=== PATIENT | female | born 1980 | race Caucasian/White ===

== ENCOUNTER → 2017-11-08 15:03 | Outpatient (CLI) | payer MEDICAID ==
[~2017-11-08 15:03] MED LIST: BUPRENORPHIN-N1 EACH SL; KLONOPIN1 MG PO; VYVANSE60 MG PO; WELLBUTRIN SR150 MG PO; ZOLOFT100 MG PO
[2017-11-21 08:13] VITALS: BMI 31.0
== END | disposition home or self-care (01) ==
LOC: D.LABREF 15:03
DX: R31.9 Hematuria, unspecified (principal)

== ENCOUNTER 2017-11-21 07:20 | Day surgery (SDC) | payer MEDICAID ==
[2017-11-20 15:12] LABS: HEMATOCRIT 39.1 % (36.0-48.0); HEMOGLOBIN 13.1 g/dL (12-16); MCH 30.1 pg (26.0-34.0); MCHC 33.5 g/dL (31.0-37.0); MCV 89.9 fL (80.0-100.0); MEAN PLATELET VOLUME 9.6 fL (7.4-10.4); RBC 4.35 10x6/uL (4.00-5.40); RDW 12.9 % (11.5-14.5); WBC 5.8 10x3/uL (4.8-10.8)
[~2017-11-21] VITALS: Ht 157.5 cm; Wt 76.7 kg
--- NOTE | ~2017-11-21 | OP ---
PATIENT NAME: DAWOOD HAM MEDICAL RECORD: [id number] :78 LOCATION:[facility] ADMISSION DATE: SURGEON: BRUNILDA BURTON MD DATE OF OPERATION: 11/21/2017 SURGEON: Brunilda Burton MD ANESTHESIA: MAC by Dr. Ed Guzman. PREOPERATIVE DIAGNOSES: Gross hematuria, interstitial cystitis. PROCEDURES: Cystoscopy, intravesical Rimso instillation 50 mL. FINDINGS: Single ureteral orifices bilaterally. No bladder tumors. Diffusely inflamed bladder. BLOOD LOSS: None. CLINICAL HISTORY: This is a 37-year-old female referred for gross hematuria. She had a workup including urine cytology, which was normal. CT scan of the abdomen and pelvis revealed no kidney stones and no renal masses. She comes today for cystoscopy. She does have ongoing symptoms of suprapubic pain, dyspareunia and urinary frequency. This is in spite of negative urine cultures. The symptoms are highly suggestive of interstitial cystitis. If we see bladder inflammation today, we will proceed to treat her with an anti-inflammatory, which is Rimso. This goes directly into the bladder. SHE IS ALLERGIC TO HYDROCODONE, CODEINE AND TRAMADOL. She was given Ancef manager of organizational development to the OR. DESCRIPTION OF PROCEDURE: The patient was given IV sedation. She was placed in the dorsal lithotomy position. We used a 21-Finnish cystoscope with 30-degree lens for visualization. There was some urethral stenosis, which we dilated with passage of the scope. In the bladder, no tumors were seen. Diffuse bladder inflammation was seen. The bladder was then emptied through the cystoscope sheath. We inserted a 16-Finnish red rubber catheter into the bladder. Through the catheter, 50 mL of Rimso-50 solution was placed into the bladder. The patient will hold the solution for a period of 15 minutes or greater and then void the solution out. She will come next week to the office to have the Rimso treatment given again by my office nurse. TRANSINT:[id number] Voice Confirmation ID: [id number] DOCUMENT ID: [id number] BRUNILDA BURTON MD at 1342 CC: [id number] DICTATION DATE: 11/21/17 1253 EYELET ROW MARKER: 11/21/17 1320 [facility] [address] [place] [address]
[2017-11-21 08:13] VITALS: BP 126/79; Ht 157.5 cm; Wt 76.7 kg
== END 2017-11-21 14:45 | disposition home or self-care (01) ==
LOC: D.OPS 07:20 → D.PAN 08:55 → D.OPS 09:00
PROVIDERS: Anesthesiology
DX: R31.0 Gross hematuria (principal); N30.11 Interstitial cystitis (chronic) with hematuria; Z01.812 Encounter for preprocedural laboratory examination

== ENCOUNTER 2018-09-11 16:00 | Outpatient (CLI) | payer MEDICAID ==
[2017-11-21 08:13] VITALS: BMI 31.0
== END 2018-09-11 16:30 | disposition home or self-care (01) ==
LOC: D.MAMMO 16:00
PROVIDERS: ATTEND Family Medicine
DX: Z12.31 Encounter for screening mammogram for malignant neoplasm of breast (principal)

== ENCOUNTER 2019-10-10 13:30 | Outpatient (CLI) | payer MEDICAID ==
[2017-11-21 08:13] VITALS: BMI 31.0
== END 2019-10-10 14:30 | disposition home or self-care (01) ==
LOC: D.MAMMO 13:30
PROVIDERS: ATTEND Family Medicine
DX: N64.4 Mastodynia (principal)

== ENCOUNTER 2020-06-11 05:00 | Inpatient (IN) | payer MEDICAID ==
[2020-06-08 16:21] LABS: UDS - AMPHET POSITIVE QUAL (NEGATIVE); UDS - BARB NEGATIVE QUAL (NEGATIVE); UDS - BENZO NEGATIVE QUAL (NEGATIVE); UDS - COCAINE NEGATIVE QUAL (NEGATIVE); UDS - OPIATE NEGATIVE QUAL (NEGATIVE); UDS - PCP NEGATIVE QUAL (NEGATIVE); UDS - THC POSITIVE QUAL (NEGATIVE)
[2020-06-08 16:41] LABS: BASOPHILS 0.4 % (0-2); EOSINOPHILS 0.6 % (0-7); HEMATOCRIT 42.6 % (36.0-48.0); HEMOGLOBIN 14.2 g/dL (12-16); IMMATURE GRANULOCYTES 0.3 % (0-5); LYMPHOCYTE ABS# 2.28 10x3/uL (1.18-3.74); LYMPHOCYTES 28.7 % (15-50); MCH 30.2 pg (26.0-34.0); MCHC 33.3 g/dL (31.0-37.0); MCV 90.6 fL (80.0-100.0); MEAN PLATELET VOLUME 10.4 fL (7.4-10.4); NEUTROPHIL ABS# 5.17 10x3/uL (1.56-6.13); PLATELET COUNT 374 10x3/uL (130-400); RDW 12.8 % (11.5-14.5)
[2020-06-08 16:43] LABS: CALC OSMOLALITY 269 mosm/kg (275-300); CALCIUM 9.3 mg/dL (8.5-10.1); CARBON DIOXIDE 28.3 mmol/L (21.0-32.0); CHLORIDE - SERUM 100 mmol/L (98-107); CREATININE - SERUM 0.7 mg/dL (0.6-1.3); GLUCOSE 89 mg/dL (74-106); POTASSIUM - SERUM 3.5 mmol/L (3.5-5.1); SODIUM 136 mmol/L (136-145); UREA NITROGEN 10 mg/dL (7-18); eGFR NON AFRICAN AMERICAN > 90 mL/min (90-120)
[2020-06-11] VITALS (10 sets, daily range): BP systolic 91–146; BP diastolic 57–88; Ht 167.6 cm; Wt 82.3 kg
[~2020-06-11] VITALS: Ht 167.6 cm; Wt 82.3 kg
[~2020-06-11 05:00] MED LIST changes: +AZO STANDARD95 MG PO; +DIFLUCAN150 MG PO; +MACRODANTIN100 MG; +MICONAZOLE NITR28 GM TOPICAL; +ZOLOFT50 MG PO
[2020-06-11 06:27] LABS: HCG URINE NEGATIVE (NEGATIVE)
--- NOTE | 2020-06-11 10:42 | NUR ---
PT REFUSES NARCOTICS AND ANESTHESIA AT BEDSIDE DISUCSSING PAIN CONTROL
--- NOTE | 2020-06-11 11:35 | NUR ---
RECEIVED PT VIA BED ACCOMPANIED BY PACU STAFF AND . TO ROOM 1276. PT AWAKE, BUT VERY DROWSY; RESPONDS TO NAME AND ANSWERS APPROPRIATELY. ORIENTED X3. IV INFUSING TO GRAVITY IN LEFT FOREARM. IV PLACED TO IVP INFUSING AT 125CC/HR. O2 AT 2L PER NC. 3 LAPROSCOPIC INSCISIONS NOTED: 1 @ UMBILICU AND 1 EACH AT RIGHT AND LEFT LOWER ABD. QUADRANTS. ALL LAP INCISIONS CDI WITH DERMABOND. LOW TRANSVERSE INCISION WITH STERISTRIPS AND DSG WITH SMALL AMOUNT SEROUS DRAINAGE NOTED ON DRESSSING. BRUNNER CATHETER DRAINING DARK GREEN/BLUE URINE TO GRAVITY; 25CC NOTED IN BAG ON ADMISSION TO UNIT. SCD'S IN PLACE; MACHINE ATTACHED AND CYLCINE. SECOND IV NOTED IN LEFT HAND-SALINE LOCKED. EPIDURAL INFUSING VIA PUMP. PT STATES SHE IS COMFORTABLE AND NOT REQUIRING ANY OTHER PAIN MEDICATION AT THIS TIME. WATER GIVEN. PT AND ORIENTED TO ROOM. BED IN LOW POSITION WITH SIDE RAILS UP X2. CALL LIGHT WITHIN REACH.
--- NOTE | 2020-06-11 12:22 | NUR ---
O2 SAT 100% ON 2L PER NC. OXYGEN D/C'D.
--- NOTE | 2020-06-11 13:00 | NUR ---
PT RESTING QUIETLY WITH EYES CLOSED. CALL LIGHT WITHIN REACH.
--- NOTE | 2020-06-11 15:04 | NUR ---
PT SILK WEAVER LIGHT. REQUESTS JELLO AND JUICE. JELLO AND JUICE GIVEN. PT. REMAINS COMFORTABLE WITH CONTINUEOUS INFUSION EPIDURAL. BRUNNER DRAINING DILUTE, CLEAR LIGHT BLUE URINE. NO OTHER NEEDS OR CONCERNS VOICED AT THIS TIME. AT BEDSIDE.
--- NOTE | 2020-06-11 16:00 | NUR ---
DR. ZIMMERMAN CALLED TO UNIT. STATUS REPORT GIVEN. ORDERS RECEIVED.
--- NOTE | 2020-06-11 16:27 | NUR ---
PT CALLS ON LIGHT. C/O PAIN TO RIGHT SIDE OF ABDOMEN. DENIES NAUSEA. TYLENOL 1000 MG IVP UP VIA ALARIS PUMP. TORADOL 30 MG GIVEN SIVP OVER 2 MINUTES. LEVAQUIN AND NEURONTIN BOTH GIVEN PO ORDERED. PT INSTRUCTED ON MEDS. VERBALIZES UNDERSTANDING. PT STATES PAIN SCALE "5-6" ON 0-10 PAIN SCALE.
--- NOTE | 2020-06-11 17:28 | NUR ---
IV SALINE LOCKED AND FLUSHED WITH 8CC NS WITHOUT DIFFICULTY.
--- NOTE | 2020-06-11 19:45 | NUR ---
ASSESSMENT PER FLOW SHEET, VS OBTAINED, SALINE LOCK IN LEFT HAND AND LEFT FA INTACT WITH NO REDNESS OR EDEMA, Melon #usemelonI INC WITH STERI STRIP AND CLEAR DRESSING INTACT WITH DRIED DRAINAGE NOTED, ICE PACK TO ABD, BRUNNER CATH INTACT DRAINING DARK YELLOW URINE, CHANGED PT'S GOWN, SCD'S ON AND WORKING PROPERLY, PT REQUESTED AND SERVED FRESH H20, PT DENIES FURTHER NEEDS, S/O ASLEEP AT BEDSIDE
--- NOTE | 2020-06-11 20:30 | NUR ---
EPIDURAL CHECK DONE, PT DENIES NEEDS
--- NOTE | 2020-06-11 22:05 | NUR ---
SALINE LOCK IN LEFT FA CONVERTED TO IV [facility] AT [facility], ADM TORADOL SIVP PER MD ORDERS, INFORMED PT THAT I WILL LEAVE THE IV INFUSING AT THIS TIME SINCE THE TYLENOL WILL BE DUE SHORTLY, PT VERBALIZES UNDERSTANDING, DENIES NEEDS AT THIS TIME, S/O ASLEEP AT BEDSIDE
--- NOTE | 2020-06-11 23:00 | NUR ---
PT AWAKE, VS OBTAINED, BRUNNER CATH EMPTIED, EPIDURAL CHECK DONE, TCDB, PT REPOSITIONED TO LEFT SIDE WITH PILLOW BEHIND BACK FOR COMFORT AND SUPPORT, FRESH ICE PACK TO ABD, ADM TYLENOL IVPB PER MD ORDRS, SEE EMAR, SCD'S CONTINUE ON AND WORKING PROPERLY, FRESH H20 SERVED, PT DENIES FURTHER NEEDS, S/O ASLEEP AT BEDSIDE
--- NOTE | 2020-06-11 23:21 | NUR ---
SUKHDEV SEGOVIA, RN SPOKE TO DR RAM REGARDING PT'S REQUEST FOR "SOMETHING FOR GAS", SHE REPORTS DR RAM ORDERED SIMETHICONE 80MG PO Q4H PRN FOR GAS
--- NOTE | 2020-06-12 | NUR ---
PT RESTING WITH EYES CLOSED, RESP QUIET, NO DISTRESS NOTED, LEFT UNDISTURBED AT THIS TIME, EPIDURAL CHECK DONE
--- NOTE | 2020-06-12 01:00 | NUR ---
PT RESTING WITH EYES CLOSED, RESP QUIET, NO DISTRESS NOTED, LEFT UNDISTURBED AT THIS TIME, EPIDURAL CHECK DONE, S/O ASLEEP AT BEDSIDE
--- NOTE | 2020-06-12 01:25 | NUR ---
PT UROLOGIC NURSE LIGHT, PT REPOSITIONED TO BACK, ICE PACK TO ABD, PT C/O PAIN, OFFERED PAIN MED, PT REFUSES AT THIS TIME, INFORMED PT THAT I WILL BE IN AT 2AM TO ADM NEURONTIN, PT VERBALIZES UNDERSTANDING, DENIES FURTHER NEEDS
--- NOTE | 2020-06-12 02:03 | NUR ---
PT AWAKE, ADM NEURONTIN PER MD ORDERS, SEE EMAR, REQUESTED AND SERVED FRESH H20, PT DENIES FURTHER NEEDS, S/O ASLEEP AT BEDSIDE
[2020-06-12 04:34] VITALS: BP 138/76
--- NOTE | 2020-06-12 04:35 | NUR ---
PT AROUSES TO OPENING OF DOOR, VS OBTAINED, BRUNNER CATH EMPTIED, PUMPS CLEARED, ADM TORADOL, TYLENOL, AND MYLICON PER MD ORDERS, SEE EMAR. TALKED TO PT ABOUT TAKING PAIN MED, PT VERBALIZES UNDERSTANDING, REPORTS THAT SHE WILL TALK TO DR ZIMMERMAN ABOUT IT, FRESH ICE PACK TO ABD, FRESH H20 SERVED, SCD'S CONTINUE ON AND WORKING PROPERLY, PT DENIES FURTHER NEEDS, S/O ASLEEP AT BEDSIDE
--- NOTE | 2020-06-12 05:30 | NUR ---
LAB IN ROOM, EPIDURAL CHECK DONE, PT DENIES NEEDS AT THIS TIME
[2020-06-12 06:08] LABS: HEMATOCRIT 34.7 % (36.0-48.0); HEMOGLOBIN 11.3 g/dL (12-16); MCH 29.8 pg (26.0-34.0); MCHC 32.6 g/dL (31.0-37.0); MCV 91.6 fL (80.0-100.0); RBC 3.79 10x6/uL (4.00-5.40); WBC 11.5 10x3/uL (4.8-10.8)
--- NOTE | 2020-06-12 06:36 | NUR ---
DR ZIMMERMAN ON UNIT, REPORTS HE SPOKE TO PT ABOUT PAIN MED, ORDERS RECEIVED FOR 0.5MG TO 1 MG Q4H IV FOR PAIN TO SEE HOW PT TOLERATES IT, ORDERS READ BACK AND VERIFIED
--- NOTE | 2020-06-12 06:53 | NUR ---
SHIFT REPORT TO DAY SHIFT
[2020-06-12 07:00] VITALS: BP 132/77
--- NOTE | 2020-06-12 07:00 | NUR ---
AM ASSESSMENT COMPLETED. SEE FLOWSHEET. SR UP X 2, CL/PHONE WITHIN REACH.
--- NOTE | 2020-06-12 07:35 | NUR ---
AFTER SPEAKING WITH PT REGARDING PAIN MANAGEMENT, PT STATES HER EPIDURAL HASN'T WORKED WELL FOR HER PAIN CONTROL, STATES THEY HAVEN'T BEEN GIVEN CLEAR ANSWERS TO HOW IT WORKS, AND WHEN TO STOP MED. MEDICATION ADM RECORD REVIEWED WITH PT, PT ABLE TO MOVE BOTH LEGS, RIGHT LEG WITHOUT WEAKNESS, WEAKNESS NOTED TO LEFT LEG. PT RATING PAIN TO INCISIONAL AREA 6/10, ABDOMEN PALPATES SOFT, LAP INCISIONS NOTED, ALONG WITH DRESSING TO INCISION, BRUISING (DARK PINK) AREA NOTED TO PT'S LEFT SIDE OF INCISION, APPROX 3 INCHES. PT DENIES PASSING GAS, BOWEL SOUNDS PRESENT X 4. LARGE ICE WATER SERVED TO PT, DIETARY SERVES CLEAR LIQUID TRAY. SR UP X2, CALL LIGHT AND PHONE WITHIN REACH.
--- NOTE | 2020-06-12 07:43 | NUR ---
PHONE CALL MADE TO DR. ZIMMERMAN. NO ANSWER.
--- NOTE | 2020-06-12 08:10 | NUR ---
PHONE CALL MADE TO DR. ZIMMERMAN BY Deborah MCLEOD, MITCHELL. VERIFICATION OF CONCURRENT EPIDURAL ORDER AND IV DILAUDID FOR PAIN MANAGEMENT QUESTIONED, TELEPHONE ORDER RECEIVED BY Deborah MCLEOD RN TO CALL ANESTHESIA FOR EPIDURAL MANAGEMENT, AND TO ADM IV DILAUDID NOW. PHONE CALL MADE TO DR. REDMOND, AND GUI CATALAN CRNA ANSWERS WITH REPORT GIVEN TO AUTOMOTIVE ELECTRICIAN.
--- NOTE | 2020-06-12 08:15 | NUR ---
GUI CATALAN, AUTOMOBILE SERVICE STATION ATTENDANT IN ROOM TO D/C EPIDURAL.
--- NOTE | 2020-06-12 11:10 | NUR ---
TELEPHONE CALL MADE TO DR. ZIMMERMAN TO REPORT WHEN PT GOT UP TO WALK TO THE BATHROOM TO TRY TO HAVE A BM, PT SAT DOWN ON THE TOILET, PT STATES "SOMETHING JUST CAME OUT", UPON INSPECTION OF PERINEAL/VAGINAL AREA, BRUNNER CATH NOTED TO BE ATTACHED TO LEG PLATE, AND OUT OF BLADDER, WITH BALLOON NOT INFLATED. BRUNNER CATH TAKEN OFF OF LEG PLATE, WITH 1100 CCS LIGHT YELLOW URINE IN BRUNNER BAG. TELEPHONE REPORT TO MD PT IS TOLERATING PO DIET, AND PO MEDS, REPORT TO MD IV TORADOL AND IV ZOFRAN, AND IV TORADOL STILL ORDERED. MD AWARE PT WAS GIVEN IV ZOFRAN AND IV TORADOL, WITH PO MEDS THAT WERE ADM. SEE EMAR FOR ALL MEDS ADM BY THIS RN. PERICARE DONE WITH WARM WATER BOTTLE, AND WARM WET WAHCLOTHS. BED LINENS CHANGED WITH HELP FROM Deborah THOMASON RN. PT THEN BACK TO BED. SRUP X2, CALL LIGHT AND PHONE WITHIN REACH. TELEPHONE ORDER RECEIVED FROM DR. ZIMMERMAN TO REPLACE BRUNNER CATH.
[2020-06-12 11:30] VITALS: BP 114/78
--- NOTE | 2020-06-12 12:25 | NUR ---
16 AZERI BRUNNER CATH INSERTED USING STERILE TECHNIQUE, WITH IMMEDIATE RETURN OF 100 MLS CLEAR YELLOW URINE. PT HENRY WELL. PT EDUCATED ON BRUNNER CATH CARE, AND LEG PLATE PLACEMENT, AND BRUNNER BAG PLACEMENT. PT DENIES ALL QUESTIONS AT THIS TIME. PT STATES THE PAIN MEDICATION HAS HELPED SOME NOW RATING PAIN 4/10. SRUP X2, CALL LIGHT AND PHONE WITHIN REACH.
[2020-06-12 16:00] VITALS: BP 124/68
--- NOTE | 2020-06-12 16:00 | NUR ---
TELEPHONE REPORT CALLED TO DR. ZIMMERMAN, PT REPORTS SHE FEELS LIKE SHE IS HAVING BLADDER SPASMS. TOTAL URINE OUTPUT REPORTED TO 1100 MLS AFTER BRUNNER CATH REPLACED EARLIER. TELEPHONE ORDER RECEIVED FOR URISPAS 100 MG PO Q6H.
--- NOTE | 2020-06-12 18:45 | NUR ---
PT SITTING UP IN THE BED, SIG OTHER AT BEDSIDE. SEE EMAR FOR ALL MEDS ADM BY THIS RN. PT DENIES ALL OTHER NEEDS. SRUP X2, CL/PHONE WITHIN REACH. PT DENIES N/V, SOB, CHEST PAIN, DIFFICULTY BREATHING.
--- NOTE | 2020-06-12 20:10 | NUR ---
RECEIVED REPORT FROM JAMEL PINEDA RN
[2020-06-12 20:45] VITALS: BP 106/71
--- NOTE | 2020-06-12 20:45 | NUR ---
ASSESSMENT PER FLOW SHEET, VS OBTAINED, SALINE LOCK IN LEFT HAND INTACT WITH NO REDNESS OR EDEMA, BIKINI INC WITH DRESSING INTACT,NO VAG BLEEDING NOTED, PT REPORTS FLATUS, BRUNNER CATH INTACT DRAINING PALE YELLOW URINE, PT RATES INC PAIN 08/03, SCD'S OFF AT THIS TIME, INFORMED PT THAT I WILL PUT THEM ON AT BEDTIME, PT VERBALIZES UNDERSTANDING, PT INST THAT SHE NEEDS TO AMB BEFORE BED, VERBALIZES UNDERSTANDING, FRESH H20 SERVED, S/O AT BEDSIDE
--- NOTE | 2020-06-12 21:05 | NUR ---
PT AMB IN ROWE WITH S/O AND THIS RN, GAIT STEADY, THEN BACK TO ROOM AND BED, PT HENRY WELL
--- NOTE | 2020-06-12 22:39 | NUR ---
PT AWAKE, ADM PAIN MED PER MD ORDERS, SEE EMAR, SCD'S PLACED ON AND WORKING PROPERLY, FRESH H20 SERVED, PT DENIES FURTHER NEEDS, S/O AT BEDSIDE
[2020-06-13 00:27] VITALS: BP 107/66
--- NOTE | 2020-06-13 00:27 | NUR ---
PT RESTING WITH EYES CLOSED, AROUSES TO SOFT VERBAL STIMULATION, VS OBTAINED, AND TORADOL PO PER MD ORDERS, SEE EMAR, PT DENIES NEEDS AT THIS TIME, S/O ASLEEP AT BEDSIDE
--- NOTE | 2020-06-13 02:10 | NUR ---
PT AWAKE, ADM NEURONTIN PER MD ORDERS, SEE EMAR, EMPTIED MYESHA, PT DENIES NEEDS AT THIS TIME, SCD'S CONTINUE ON AND WORKING PROPERLY, S/O ASLEEP AT BEDSIDE
--- NOTE | 2020-06-13 02:30 | NUR ---
REPORT TO JAMEL PINEDA RN AND WILEY HEAD RN
[2020-06-13 04:40] VITALS: BP 99/66
--- NOTE | 2020-06-13 04:40 | NUR ---
ROUNDS COMPLETED, VSS, AFEBRILE, RESP EVEN AND UNLABORED, REPORTS PAIN 5-6 ON NUMERIC PAIN SCALE, PERCOCET TABS X2 ADMINISTERED WITH SIPS WATER PER PT REQUEST, BRUNNER WITH 200 ML CLEAR YELLOW URINE TO GRAVITY DRAINAGE NOTED IN CHAMBER. HOB ELEVATED 30 DEGREES, CUP OF ICE WATER PROVIDED AND 2 CUPS SHERBERT PER PT REQUEST GIVEN. C/L IN EASY REACH, BED IN LOW POSIITON, BED BRAKES LOCKED. CONTINUE TO MONITOR.
--- NOTE | 2020-06-13 06:03 | NUR ---
ROUNDS COMPLETED, SCHEDULED TORADOL PO ADMINISTERED PER ORDERS WITH SIPS WATER. PT RELAYS PAIN ON MOVEMENT RATED AT 5 OUT OF 10 ON NUMERIC PAIN SCALE. DENIES OTHER NEEDS, EMPTIED 300 ML URINE FROM BRUNNER CHAMBER INTO BAG. WILL MONIOTOR.
--- NOTE | 2020-06-13 07:06 | NUR ---
REPORT GIVEN TO ONCOMING SHIFT STAFF.
[2020-06-13 07:50] VITALS: BP 125/80
--- NOTE | 2020-06-13 07:50 | NUR ---
SHIFT ASSESSMENT COMPLETED PER FLOWSHEET. VSS. TELFA DRSG REMOVED FROM LOWER TRANSVERSE ABD INCISION. INCISION CLEAN AND DRY, STERI STRIPS INTACT, NO DRAINAGE NOTED, WELL APPROXIMATED. C/O ABD AND INCISIONAL PAIN. PAIN MANAGEMENT DISCUSSED AND WILL PROVIDE MEDS WHEN TIME. ICE PACK PROVIDED. INSTRUCTED ON BRUNNER CARE AND CHANGING BEDSIDE DRAINAGE BAG TO LEG BAG WITH RETURN DEMONSTRATION FROM PT SEEN. ICE WATER PROVIDED. SCD'S REMOVED PER REQUEST TO AMBULATE IN ROWE. SPOUSE PRESENT AND SUPPORTIVE OF PT. PT AMBULATORY IN ROWE WITH SPOUSE. STEADY GAIT NOTED.
--- NOTE | 2020-06-13 08:07 | NUR ---
MEDICATED PER EMAR. CONTINUES TO BE AMBULATORY IN ROWE AND ROOM WITH SPOUSE. FALL PRECAUTIONS GIVEN, VERBALIZES UNDERSTANING. STEADY GAIT NOTED.
--- NOTE | 2020-06-13 08:47 | NUR ---
BACK TO ROOM. PT DEMONSTRATES TO RN EMPTING LEG BAG. DENIES NEEDS. SPOUSE SUPPORTIVE AND ATTENTIVE TO PT. PT DENIES QUESTIONS REGARDING BRUNNER CARE. INSTRUCTED ON INCISIONAL CARE, VERBALIZES UNDERSTANDING.
--- NOTE | 2020-06-13 08:59 | OP ---
PATIENT NAME: DAWOOD HAM MEDICAL RECORD: [id number] :78 LOCATION:[id number] ADMISSION DATE:06/11/20 SURGEON: JESUS ZIMMERMAN MD DATE OF OPERATION: 06/11/2020 PREOPERATIVE DIAGNOSES: 1. Dyspareunia. 2. Dysfunctional uterine bleeding. POSTOPERATIVE DIAGNOSES: 1. Dyspareunia. 2. Dysfunctional uterine bleeding. 3. Pelvic adhesions. PROCEDURES: 1. Diagnostic laparoscopy. 2. Laparoscopic lysis of adhesions. 3. Total abdominal hysterectomy with bilateral salpingectomy. 4. Repair of cystotomy. 5. Cystoscopy. SURGEON: Jesus Zimmerman MD TAX PROCESSOR: Kirit Nance DO MARKETING DATABASE CONSULTANT: Jennifer Woods. ANESTHESIOLOGIST: Dr. Sethi. ANESTHETIC: General with TAP block year. FINDINGS: Omentum is densely adhered to the midline from just below the umbilicus to above the level of the uterine body. The bladder is adhesed to the cervix. Both tubes were interrupted bilaterally and the ovaries were unremarkable. Uterus is normal size, shape, and contour. At the time of cystoscopy, the mucosa is intact with repair evident. Both ureters showed good efflux of urine. SPECIMEN REMOVED: Uterus with cervix and bilateral tubes. SPECIMEN DISPOSITION: All specimens to Pathology. ESTIMATED BLOOD LOSS: Less than or equal to 150 cc. FLUIDS: 1600 cc of lactated Ringer's. URINE OUTPUT: 125 cc of clear urine. COMPLICATIONS: Cystotomy. DRAINS: Higgins to gravity. INDICATIONS: The patient is a 40-year-old female with heavy irregular periods along with dyspareunia. The patient has been offered conservative therapy and desires definitive treatment. The patient is consented for total laparoscopic OPERATIVE REPORT [id number] DAWOOD HAM hysterectomy and bilateral salpingectomy and any indicated procedure. DESCRIPTION OF PROCEDURE: After informed consent was assured, the patient was taken to the operating room where anesthetic was obtained. The [facility] and prepped and draped. A uterine manipulator was placed. An incision was made to accommodate a 5-mm trocar at the infraumbilical site. Accessory trocars were placed and the patient is in Trendelenburg position. Using a Thunderbeat coagulation cutter and starting on the right side, the mesosalpinx was compressed, coagulated, and . The dissection was carried out underneath the right tube across the uteroovarian ligament and round ligament. The anterior leaf of the broad ligament was opened and the posterior leaf dissected through the uterine vasculature. The vasculature of the right side was compressed, coagulated, and . A Surgicel was placed over this vascular stump while dissection begins on the left side. Left tube was compressed, coagulated, and along with the round ligament. The uteroovarian ligament on the left side was entered as well. Dissection carried down anteriorly and the bladder flap was now developed from the left to the right, taking down the scar tissue. During the course of dissection of the bladder, a incidental cystotomy was suspected and the bladder was retrograde filled with sterile milk, which demonstrates a defect. An open procedure was now performed. Using a #10 blade scalpel, the incision was made over the old Pfannenstiel scar and carried down to the underlying layer of the fascia, which was opened in the midline and extended laterally. Rectus bellies were dissected free superiorly and inferiorly and . Bowel was packed free of the pelvis and an O'Dmitriy-O'Quiroga self-retaining retractor was now placed. Upper and lower blades were placed with visualization of the uterus and the operative field. With 2 Garth clamps across the cornual region, the uterus was elevated and using a Garth-Shelli and Shelli clamps, the remaining portions of the cardinal ligaments were serially clamped, cut and tied until the level of the uterosacral ligaments were reached. The top of the vagina was cross-clamped with Garth clamps and the uterus and cervix were removed with Curtis scissors. Cuff was now closed with interrupted [id number] stitches. After closure of the cuff, pelvis was irrigated and irrigant removed. Adequate hemostasis was shown. Remaining portion of the left tube to include the fimbria was now removed with a Garth clamp and a [id number] stitch. The attention was directed to the bladder where the defect was identified and marked with chromic stitch. Using 3-0 chromic, the initial running stitch reapproximates the bladder mucosa. After this has been completed, 3-0 Vicryl was used to imbricate the muscularis and serosa over this repair. After the repair has been made, the bladder was retrograde filled with over 200 cc of sterile milk without extravasation of the distention media into the pelvis. The bladder was now drained and the pelvis again irrigated. After irrigation was complete, Varghese was placed over the operative field. Surgicel has been removed along with all sponges and our initial count was correct. Using a PDS suture, the fascial incision was now closed. After the fascia has been closed, the subcutaneous tissue was irrigated, bleeding vessels cauterized, and all skin sites were closed with 3-0 Monocryl on a PS2 needle. Sterile dressing was applied. Cystoscopy was performed. Good efflux of urine was noted from both right and left ureters. The repair site was identified with only a single stranded of chromic visualized. Sponge, lap and needle counts were correct times 2 at the close of this procedure. Higgins was restarted. The patient was awakened and went to the recovery area in stable condition. TRANSINT:[id number] Voice Confirmation ID: [id number] DOCUMENT ID: [id number] OPERATIVE REPORT [id number] DAWOOD HAM,JESUS Call MD at 0859 CC: [id number] DICTATION DATE: 06/11/20 1032 RETAIL DEPARTMENT SUPERVISOR: 06/11/20 1127 ADM IN [facility] [address] [place] [address]
[2020-06-13] MEDS ORDERED: NEURONTIN 300300 MG PO (09:11)
[2020-06-13] MEDS ORDERED: MOBIC7.5 MG PO (09:13)
[2020-06-13] MEDS ORDERED: PERCOCET 7.5/321 TAB PO (09:17)
--- NOTE | 2020-06-13 09:43 | NUR ---
L HAND PIV D/C'D WITH TIP INTACT. BANDAID PLACED. MEDICATED PER EMAR. VERBAL AND WRITTEN D/C INSTRUCTIONS PROVIDED. VERBALIZES UNDERSTANDING. ABD BINDER PROVIDED AND PLACED ON, INSTRUCTED ON USE, VERBALIZES UNDERSTANDING. COPIES OF POST OP AND POST OP HYST INSTRUCTION HANDOUTS PROVIDED. PRESCRIPTIONS FOR MOBIC, GABAPENTIN, AND PERCOCET PROVIDED. PT VERBALIZES RESUMING SUBOXONE FOLLOWING COMPLETION OF PERCOCET AND UNDERSTANDS IMPORTANCE OF CALLING [facility] TO SCHEDULE FOLLOW UP APPT IN CLINIC FOR MONDAY AND . STATES THAT SHE WILL CALL SPOUSE WHO WENT HOME TO CARE FOR CHILDREN TO COME PICK HER UP. BED IN LOW POSITION WITH SRUP X2. CALL LIGHT AND PHONE WITHIN REACH.
--- NOTE | 2020-06-13 10:51 | NUR ---
OFF UNIT WITH THIS RN AND SPOUSE VIA W/C IN STABLE CONDITION.
== END 2020-06-13 10:51 | disposition home or self-care (01) | DRG 743 ==
LOC: D.OPS 05:00 → D.LD 09:55 → D.OPS 11:42 → D.LD 11:42
PROVIDERS: ADMIT Obstetrics & Gynecology; ATTEND Obstetrics & Gynecology
PROC: 0UT90ZZ Resection of Uterus, Open Approach (ICD-10-PCS; principal; 2020-06-11 07:00)
PROC: 0UT70ZZ Resection of Bilateral Fallopian Tubes, Open Approach (ICD-10-PCS; 2020-06-11 07:00)
DX: N94.10 Unspecified dyspareunia (principal); N93.8 Other specified abnormal uterine and vaginal bleeding; N73.6 Female pelvic peritoneal adhesions (postinfective)